=== PATIENT | male | born 1985 | race African-American/Black ===

== ENCOUNTER 2018-03-19 21:00 | Emergency (ER) | payer OTHER ==
[~2018-03-19] VITALS: Ht 170.2 cm; Wt 49.9 kg
[~2018-03-19 21:00] MED LIST: KEFLEX500 MG PO; VICODIN1 TAB PO
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
[2018-03-19 21:10] VITALS: BP 166/89
== END 2018-03-19 21:10 | disposition home or self-care (01) ==
LOC: EDBD 21:00 → EMR 21:10
DX: M79.604 Pain in right leg (principal)
CPT/HCPCS: 99282